=== PATIENT | male | born 1990 | race Caucasian/White ===

== ENCOUNTER 2021-05-16 13:30 | Emergency (ER) | payer OTHER ==
[2021-05-16 16:55] LABS: BASOPHIL 0.5 % (0-2); EOSINOPHIL 4.5 % (0-5); HCT 36.4 % (42.0-52.0); HGB 12.6 g/dl (13.2-18.0); LYMPHOCYTE 42.8 % (15-48); MCH 30.5 pg (25.0-31.0); MCHC 34.6 g/dL (32.0-36.0); MCV 88.1 fL (78.0-100.0); MONOCYTE 6.3 % (0-12); MPV 9.4 fL (6.0-9.5); NEUTROPHIL 45.2 % (41-80); NRBC 0; PLT 263 K/uL (150-400); RBC 4.13 M/uL (4.70-6.00); RDW 13.4 % (11.5-14.0); WBC 7.6 K/uL (4.0-10.5)
[2021-05-16 17:19] LABS: BUN/CREAT RATIO (CALC) 10.3 RATIO; CREATININE 0.87 mg/dL (0.67-1.17); POTASSIUM 3.8 mmol/L (3.5-5.1)
[2021-05-16] MEDS ORDERED: BACITRACIN15 GM TOP (18:02)
[2021-05-16] MEDS ORDERED: CLEOCIN300 MG PO (18:02)
== END 2021-05-16 18:46 | disposition home or self-care (01) ==
LOC: FER 13:30
PROVIDERS: Nurse Practitioner Family
DX: L03.115 Cellulitis of right lower limb (principal); F17.210 Nicotine dependence, cigarettes, uncomplicated
CPT/HCPCS: 36415; 80048; 85025; 87070; 87077; 87186; 87205; 99283